=== PATIENT | male | born 1945 | race Hispanic/Latino ===

== ENCOUNTER 2021-08-19 21:33 | Emergency (ER) | payer MEDICARE ==
--- NOTE | 2021-08-19 21:58 | Emergency Department Report ---
Blank Doc - Documentation Documentation: [facility] Consult Note # Demographics Consult Type: Acute Stroke Level 1 (0-4.5 hrs) Patient Location: Emergency Room First Name: Massimo Last Name: Trevin Date of : Age: 89 Gender: Male Facility: [facility] Time of Initial Page (Eastern Time): 08/19/2021, 21:33 Time of Return Call (Eastern Time): 08/19/2021, 21:33 # HPI History: EMS was called to a [employer] as the patient fell and was noted to have right sided weakness. He is unable to provide any inofrmation 2000 had the witnessed onset. # Scores Level of Consciousness 1a: [0] = Alert; keenly responsive LOC Questions 1b: [2] = Answers neither correctly LOC Commands 1c: [0] = Performs both tasks correctly Best Gaze 2: [0] = Normal Visual 3: [0] = No visual loss Facial Palsy 4: [2] = Partial paralysis Motor Arm Left 5a: [0] = No drift Motor Arm Right 5b: [4] = No movement Motor Leg Left 6a: [0] = No drift Motor Leg Right 6b: [4] = No movement Limb Ataxia 7: [0] = Absent Sensory 8: [0] = Normal Best Language 9: [2] = Severe aphasia Dysarthria 10: [1] = [id number] dysarthria Extinction and Inattention 11: [0] = No abnormality NIHSS Total: 15 # Exam SBP: 160 DBP: 84 # Data Head CT: no bleed chrnoic infarcts in bilateral hemispheres, right cerebellum CTA Head: MCA occlusion preliminarily reviewed by me, please refer to radiology read for official reading # Assessment Impression: Ischemic Stroke (Acute) # Plan Thrombolytic/Intervention: Possible IA candidate Thrombolytic Exclusion (< 3 hour window): other (see below) Thrombolytic Exclusion: pt unable to provide info about any contraindication while in CT Possible IA Candidate: signs and symptoms of LVO Imaging: (urgency: STAT): CT Angiogram Head and CT Angiogram Neck AND call back with results if abnormal Thrombolytic Administration Recommendations: Transfer to facility that is IA capable for consideration of mechanical thrombectomy Other: I have discussed my recommendations with the referring provider Disposition: transfer to IA capable facility # Logistics Telemedicine: Interactive 2 way audio and visual telecommunication technology was utilized during this visit
--- NOTE | 2021-08-19 22:00 | Emergency Department Report ---
ED Neuro Deficit HPI - General Chief Complaint: Neuro Symptoms/Deficit Stated Complaint: STROKE Time Seen by Provider: 08/19/21 21:33 Source: patient, EMS (Verbal report received from emergency medical services. EMS documentation not available at time of chart dictation ), RN notes reviewed Mode of arrival: Stretcher Limitations: Altered Mental Status, Physical Limitation - History of Present Illness Initial Comments: The patient is a 76-year-old gentleman. He is not known to myself previously. He is brought to the hospital by EMS as a possible code stroke. The patient's last known well time is not explicitly known. EMS reports to myself that the patient was in an outside supermarket, and he appeared to collapse. It is not known if he fell or hit his head or neck. EMS reports right-sided weakness, and right-sided facial droop. They report normal Accu-Chek. Code stroke called in advance. Initially, patient does not have ID on him, and he is triaged under the name of medical emergency. In the emergency room, the patient is awake, with right-sided facial droop, and dense right-sided hemiparesis. He is aphasic. He is awake and follows commands. He denies physical pain. The patient cannot tell me for certain when his last known well time is. Patient not able to answer questions about contraindications to TPA, such as recent use of anticoagulation, recent stroke, recent ME, recent surgery, or presence of systemic anticoagulation. At the moment, he is not accompanied by friends or family for collateral information or additional information. Patient aphasic, and not able to describe the qualitative nature of symptoms, exacerbating factors relieving factors or aggravating factors. Code stroke called overhead, given concern for MCA syndrome, noncontrast CT scan of the brain is obtained, as well as emergent acquisition of CT angiogram head and neck. Noncontrast CT scan of the brain demonstrates evidence of stroke. CT angiogram head and neck demonstrates left-sided M1 occlusion. Given uncertainty regarding last known well time and inability to obtain definitive information regarding whether or not patient has any exclusionary factors for TPA administration,, TPA is not recommended by myself, or consulting stroke neurologist. Transfer is recommended to a facility that can provide endovascular intervent ion. Contacted [facility] stroke [facility], and discussed the case with their consulting stroke neurologist, Dr. Diehl Discussed patient's history, physical, pertinent laboratory studies and imaging studies, and physical exam findings. She has also reviewed the patient's pertinent CT imaging. Patient is accepted to [facility] for emergent thrombectomy. I went back and discussed this with the patient. Patient nodded in agreement. In addition, was later on provided with the patient's true name, as well as the name of his daughter, Ms. Latha Love; [phone]. I had extensive discussion with the patient's daughter regarding the patient's current situation, and specifically risks, benefits, alternatives of TPA, and specifically the reasons why TPA was not being administered. She articulated understanding, and provided verbal consent for transfer to [facility] as well. -: unknown Location: speech, right face, right arm, left leg, altered Presenting Symptoms: Present: Weak/Paralyzed One Side ED Review of Systems ROS: Stated complaint: STROKE Other details as noted in HPI Comment: Unobtainable due to pts medical conditions Cardiovascular: denies: chest pain Gastrointestinal: denies: abdominal pain Neurological: weakness ED Neuro Physical Exam - General Limitations: Altered Mental Status, Physical Limitation General appearance: in no apparent distress, anxious Suspected Stroke: Yes - Head Head exam: Present: atraumatic, normocephalic - Eye Eye exam: Present: normal appearance, EOMI. Absent: nystagmus - ENT ENT exam: Present: normal exam, normal orophraynx, mucous membranes moist, normal external ear exam - Neck Neck exam: Present: normal inspection, full ROM. Absent: tenderness - Respiratory Respiratory exam: Present: normal lung sounds bilaterally. Absent: respiratory distress, wheezes, rales, rhonchi, stridor, decreased breath sounds - Cardiovascular Cardiovascular Exam: Present: regular rate, normal rhythm, normal heart sounds. Absent: bradycardia, tachycardia, irregular rhythm, systolic murmur, diastolic murmur, rubs, gallop - GI/Abdominal GI/Abdominal exam: Present: soft. Absent: distended, tenderness, guarding, rebound, rigid, pulsatile mass - Rectal Rectal exam: Present: deferred - Extremities Exam Extremities exam: Present: normal inspection, full ROM (Left arm and left leg), other (2+ pulses noted in the bilateral upper and lower extremities. There is no palpable cord. negative Homans sign. Muscular compartments are soft. The pelvis is stable.). Absent: calf tenderness - Back Exam Back exam: Present: normal inspection. Absent: CVA tenderness (R), CVA tenderness (L), paraspinal tenderness, vertebral tenderness - Neurological Exam Neurological exam: Present: altered, motor sensory deficit (There is right-sided facial droop. There is right-sided hemiparesis.) - NIHSS Assessment Interval: Baseline 1a. Level of Consciousness: arousable/minor stimuli 1b. LOC Questions: dysarthric/intubated 1c. LOC Commands: performs 1 task correctly 2. Best Gaze: normal 3. Visual: no visual loss 4. Facial Palsy: partial paralysis 5b. Motor Arm Right: no gravity effort 5a. Motor Arm Left: drift 6a. Motor Leg Left: drift 6b. Motor Leg Right: no gravity effort 7. Limb Ataxia: present 1 limb 8. Sensory: mild/moderate sensory loss 9. Best Language: mild/moderate aphasia 10. Dysarthria: mild/moderate dysarthria 11. Extinction/Inattention: visual/tactile inattention Total Score: 18 Stroke Severity: Moderate to Severe Stroke - Psychiatric Psychiatric exam: Present: anxious - Skin Skin exam: Present: warm, dry, intact, normal color. Absent: rash ED Course Vital Signs 08/19/21 08/19/21 08/19/21 21:52 22:11 22:15 Temperature 98.1 F Pulse Rate 72 Respiratory 16 Rate Blood Pressure 159/89 156/95 O2 Sat by Pulse 100 100 Oximetry 08/19/21 08/19/21 22:31 22:45 Temperature Pulse Rate 70 67 Respiratory 16 16 Rate Blood Pressure 168/95 158/90 O2 Sat by Pulse 100 100 Oximetry - Reevaluation(s) Reevaluation #1: 08/19/21 23:36 Contacted [facility] physician, Dr. Hutchins. Discussed the patient's history, physical, CT scan findings and existing clinical diagnosis. She has articulated understanding. - Lab Data Result diagrams: 08/19/21 22:03 08/19/21 22:03 Lab Results 08/19/21 08/19/21 08/19/21 Range/Units 21:42 22:03 22:03 WBC 9.8 (4.5-11.0) K/mm3 RBC 4.78 (3.65-5.03) M/mm3 Hgb 14.2 (11.8-15.2) gm/dl Hct 44.6 (35.5-45.6) % MCV 93 (84-94) fl MCH 30 (28-32) pg MCHC 32 (32-34) % RDW 13.9 (13.2-15.2) % Plt Count 500 H (140-440) K/mm3 Lymph % (Auto) 14.4 (13.4-35.0) % Wise % (Auto) 7.7 H (0.0-7.3) % Eos % (Auto) 2.1 (0.0-4.3) % Baso % (Auto) 0.7 (0.0-1.8) % Lymph # (Auto) 1.4 (1.2-5.4) K/mm3 Wise # (Auto) 0.8 (0.0-0.8) K/mm3 Eos # (Auto) 0.2 (0.0-0.4) K/mm3 Baso # (Auto) 0.1 (0.0-0.1) K/mm3 Seg Neutrophils % 75.1 H (40.0-70.0) % Seg Neutrophils # 7.3 (1.8-7.7) K/mm3 PT 15.0 H (12.2-14.9) Sec. INR 1.06 (0.87-1.13) APTT 32.6 (24.2-36.6) Sec. Thrombin Time 18.5 (15.1-19.6) Sec. Sodium (137-145) mmol/L Potassium (3.6-5.0) mmol/L Chloride (98-107) mmol/L Carbon Dioxide (22-30) mmol/L Anion Gap mmol/L BUN (9-20) mg/dL Creatinine (0.8-1.3) mg/dL Estimated GFR ml/min BUN/Creatinine Ratio % Glucose (75-100) mg/dL POC Glucose 91 (70-105) mg/dL Calcium (8.4-10.2) mg/dL Total Bilirubin (0.1-1.2) mg/dL AST (5-40) units/L ALT (7-56) units/L Alkaline Phosphatase (35-129) units/L Total Creatine Kinase (55-170) units/L CK-MB (CK-2) (0.0-4.0) ng/mL CK-MB (CK-2) Rel Index (0-4) Troponin T (0.00-0.029) ng/mL Total Protein (6.3-8.2) g/dL Albumin (3.9-5) g/dL Albumin/Globulin Ratio % Triglycerides (2-149) mg/dL Cholesterol (50-199) mg/dL LDL Cholesterol Direct (50-130) mg/dL HDL Cholesterol (40-59) mg/dL Cholesterol/HDL Ratio % Plasma/Serum Alcohol (0-0.07) % 08/19/21 08/19/21 Range/Units 22:03 22:03 WBC (4.5-11.0) K/mm3 RBC (3.65-5.03) M/mm3 Hgb (11.8-15.2) gm/dl Hct (35.5-45.6) % MCV (84-94) fl MCH (28-32) pg MCHC (32-34) % RDW (13.2-15.2) % Plt Count (140-440) K/mm3 Lymph % (Auto) (13.4-35.0) % Wise % (Auto) (0.0-7.3) % Eos % (Auto) (0.0-4.3) % Baso % (Auto) (0.0-1.8) % Lymph # (Auto) (1.2-5.4) K/mm3 Wise # (Auto) (0.0-0.8) K/mm3 Eos # (Auto) (0.0-0.4) K/mm3 Baso # (Auto) (0.0-0.1) K/mm3 Seg Neutrophils % (40.0-70.0) % Seg Neutrophils # (1.8-7.7) K/mm3 PT (12.2-14.9) Sec. INR (0.87-1.13) APTT (24.2-36.6) Sec. Thrombin Time (15.1-19.6) Sec. Sodium 139 (137-145) mmol/L Potassium 3.9 (3.6-5.0) mmol/L Chloride 105.0 (98-107) mmol/L Carbon Dioxide 22 (22-30) mmol/L Anion Gap 16 mmol/L BUN 28 H (9-20) mg/dL Creatinine 0.8 (0.8-1.3) mg/dL Estimated GFR > 60 ml/min BUN/Creatinine Ratio 35 % Glucose 102 H (75-100) mg/dL POC Glucose (70-105) mg/dL Calcium 9.1 (8.4-10.2) mg/dL Total Bilirubin 0.60 (0.1-1.2) mg/dL AST 24 (5-40) units/L ALT 12 (7-56) units/L Alkaline Phosphatase 77 (35-129) units/L Total Creatine Kinase 144 (55-170) units/L CK-MB (CK-2) 9.9 H (0.0-4.0) ng/mL CK-MB (CK-2) Rel Index 6.8 H (0-4) Troponin T 0.068 H (0.00-0.029) ng/mL Total Protein 6.9 (6.3-8.2) g/dL Albumin 4.0 (3.9-5) g/dL Albumin/Globulin Ratio 1.4 % Triglycerides 84 (2-149) mg/dL Cholesterol 151 (50-199) mg/dL LDL Cholesterol Direct 88 (50-130) mg/dL HDL Cholesterol 47 (40-59) mg/dL Cholesterol/HDL Ratio 3.21 % Plasma/Serum Alcohol < 0.01 (0-0.07) % Vital Signs 08/19/21 08/19/21 08/19/21 22:11 22:15 22:31 Pulse Rate 72 70 Respiratory 16 16 Rate Blood Pressure 159/89 156/95 168/95 O2 Sat by Pulse 100 100 100 Oximetry 08/19/21 22:45 Pulse Rate 67 Respiratory 16 Rate Blood Pressure 158/90 O2 Sat by Pulse 100 Oximetry - EKG Data -: EKG Interpreted by In EKG shows normal: sinus rhythm Rate: normal When compared to previous EKG there are: previous EKG unavailable 08/19/21 22:54 The EKG is interpreted at 22: 24 Sinus rhythm, 68 bpm. Normal axis, QTC 442 ms. Poor R progression. Low voltage. Abnormal EKG. Not a STEMI - Radiology Data Radiology results: pending, report reviewed, image reviewed This study is identified by patient name "emergency, medical". Patient's ifeoma ntity and age are unknown at this time. CTA neck without and with intravenous contrast material CLINICAL HISTORY: stroke sx TECHNIQUE: Following acquisition of a timing bolus 0.625 mm thick contiguous axial scans were obtained from aortic arch to the skull base during rapid bolus intravenous contrast infusion. In addition to evaluation of axial source images multiplanar reconstructions were produced and reviewed for this report. 3 plane MIP reconstructions were produced and reviewed. Contrast dose report: Omnipaque 350: 100 ml, administered intravenously All CT examinations performed at this facility utilize modulated dose reduction, iterative reconstruction or weight-based dosing, as appropriate, to obtain a radiation dose which is as low as can reasonably be achieved. FINDINGS: Thoracic aorta:No abnormalities are identified along the course of the thoracic aorta..The origins of the great vessels have an unremarkable appearance. Brachiocephalic artery, left common carotid artery origin and left subclavian artery all have an unremarkable appearance. Right carotid artery:No abnormalities are seen along the course of the RCCA, at the right carotid bifurcation or along the cervical portions of the RUBI. Left carotid artery: No abnormalities are noted along the course of the left common carotid artery, at the left carotid bifurcation or along the course of the cervical segments of the LICA. Posterior circulation:The vertebral arteries have an unremarkable appe arance. Both vertebral arteries contribute to the basilar artery origin. The basilar artery has an unremarkable appearance. The degree of stenosis, if any, is determined utilizing NASCET like criteria. In this case there is no indication of hemodynamically significant stenosis at the carotid bifurcations or elsewhere. Evaluation of the nonvascular soft tissue structures reveal no abnormality. There is no indication of cervical lymphadenopathy. No abnormalities are seen along the course of the airway. Visualized portions of the parotid glands and the submandibular salivary glands have a normal appearance. Thyroid gland has a normal appearance. Evaluation of the lung apices reveals no evidence of lung nodule or infiltrate. Evaluation of the cervical spine remarkable for widespread cervical spondylosis with multifocal neuroforaminal stenosis. In addition there is some to severe central canal stenosis at the C4-5 level secondary to posterior disc osteophyte complex. IMPRESSION: 1. No indication of hemodynamically significant stenosis at the carotid bifurcations or elsewhere. CTA head with intravenous contrast CLINICAL HISTORY: stroke sx TECHNIQUE: 0.625 mm thick contiguous axial scans were obtained from the skull base to the skull vertex during rapid bolus administration of intravenous contrast material. Multiplanar reconstructions were produced in the coronal and sagittal planes. In addition 3 plane MIP instructions were produced and reviewed for this report. The axial source images and reconstructed images were reviewed for this report. CONTRAST DOSE REPORT: Omnipaque 350: 100 ml administered intravenously. All CT scans at this location are performed using CT dose reduction for UTILICASE by means of automated exposure control. FINDINGS: Internal carotid arteries:Johnson, cavernous, opthalmic, clinoid and supraclinoid segments of the ICAs have an unremarkable a ppearance. Middle cerebral arteries: There is complete occlusion of the mid M1 segment of the left middle cerebral artery consistent with thromboembolic occlusion. The size and number of M2 and M3 branches on the left is decreased compared to those on the right. Anterior cerebral arteries:Bilaterally symmetrical A1 segments are demonstrated. No abnormalities are seen along the course of the A2 segments or their visualized pericallosal branches. I do not identified an anterior communicating artery. Vertebral arteries:Bilaterally symmetrical vertebral arteries are demonstrated. Both vertebral arteries contribute to the basilar artery origin. Basilar artery:Basilar artery has an unremarkable appearance. Posterior cerebral arteries:Bilaterally symmetrical posterior cerebral arteries are identified. Posterior communicating arteries are not identified. [place]:Not intact. see above. Dural sinuses: Dural venous sinuses are well demonstrated on this exam. There is no evidence of dural sinus thrombosis. IMPRESSION: 1. Abnormal study with large vessel occlusion of the mid M1 segment of the left middle cerebral artery. CRITICAL RESULT: Time of Discovery (BATTERYMAN/CDT): 2124 Time of Communication (BATTERYMAN/CDT): 2129 Licensed Practitioner Receiving Report: Dr. Dayo De La Rosa, [facility] emergency department. Read-Back Performed: Not applicable. Signer Name: Jose Sheppard MD Signed: 08/19/2021 9:30 PM Workstation Name: [id number] This study is identified by patient name "emergency, medical". Patient's identity and age are unknown at this time. CT HEAD WITHOUT CONTRAST INDICATION / CLINICAL INFORMATION: Stroke symptoms. TECHNIQUE: All CT scans at this location are performed using CT dose reduction for ALARA by means of automated exposure control. COMPARISON: None available. FINDINGS: HEMORRHAGE: No evidence of intracranial hemorrhage or extra-axial fluid collection. EXTRA-AXIAL SPACES: Cortical sulci and sylvian fissures are enlarged reflecting a degree of parenchymal volume loss Basilar cisterns have an unremarkable appearance. VENT RICULAR SYSTEM: The third and lateral ventricles are mildly enlarged reflecting presence of parenchymal volume loss. CEREBRAL PARENCHYMA: Periventricular and deep white matter lucency is observed. This is probably secondary to microvascular ischemic change. There is no indication of recent infarction. There is evidence of remote deep infarction involving anterior gangliocapsular structures and head of caudate nucleus on the left. MIDLINE SHIFT OR HERNIATION: There is no mass effect. CEREBELLUM / BRAINSTEM: Brainstem has an unremarkable appearance. Is evidence of remote cerebellar infarction involving the posterior inferior aspect of the right cerebellar hemisphere. MIDLINE STRUCTURES:Pituitary gland has an unremarkable appearance. No abnormalities are seen in the pineal region. INTRACRANIAL VESSELS:Calcified atherosclerotic plaque is present along the course of the cavernous segments of both internal carotid arteries. ORBITS: visualized portions of the orbits have an unremarkable appearance. SOFT TISSUES of HEAD: No significant abnormality. CALVARIUM: Evaluation of bone windows revea ls no abnormalities. PARANASAL SINUSES / MASTOID AIR CELLS: Paranasal sinuses are free from inflammatory mucosal disease. Mastoid air cells are normally pneumatized. IMPRESSION: 1. No acute intracranial abnormality. 2. 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 Signer Name: Jose Sheppard MD Signed: 08/19/2021 9:24 PM Workstation Name: [id number] CT CERVICAL SPINE WITHOUT CONTRAST INDICATION / CLINICAL INFORMATION: FALL RIGHT SIDED WEAKNESS. TECHNIQUE: Axial CT images were obtained through the cervical spine. Sagittal and coronal reformatted images were produced. All CT scans at this location are performed using CT dose reduction for ALARA by means of automated exposure control. COMPARISON: None available. FINDINGS: ALIGNMENT: No indication of traumatic subluxation. VERTEBRAE: No indication of fracture. No evidence of bone destruction. DISC SPACES: Loss of disc height is noted at the C3-4, C4-5, C5-6 and C6-7 levels. Prominent disc vacuum phenomena is present at each of these levels. INDIVIDUAL LEVEL ANALYSIS: C2-3: Bilateral facet arthropathy is noted. Central spinal canal and neuroforamina are adequate C3-4: Loss of disc height and disc vacuum phenomena are noted. Facet and uncovertebral arthritic changes contribute to moderate bilateral foraminal stenosis at the foramina. C4-5: Left worse than right facet arthropathy and uncovertebral degenerative changes contribute to moderate left-sided and mild right-sided neuroforaminal stenosis at the C5 nerve root level. Posterior disc osteophyte complex contributes to moderate central canal stenosis. AP diameter of the spinal canal spine 7 mm. C5-6: Loss of disc height and disc vacuum phenomena are noted. Facet and vertebral arthritic change contribute to bila teral foraminal stenosis. Central spinal canal is adequately maintained. C6-7: Loss of disc height and disc vacuum phenomena are noted. Facet and uncovertebral arthritic change contribute to moderate foraminal stenosis. Central spinal canal is adequate in size. C7-T1:No abnormality. CRANIOCERVICAL JUNCTION:No significant abnormality. SPINAL CANAL: Central canal stenosis at C4-5 as described above. PARASPINAL SOFT TISSUES: No significant abnormality. LUNG APICES: No significant abnormality of visualized lungs. IMPRESSION: 1. No indication of fracture or traumatic subluxation. 2. Widespread cervical spondylosis with multifocal neuroforaminal narrowing. 3. Moderate central canal stenosis C4-5. Signer Name: Jose Sheppard MD Signed: 08/19/2021 9:43 PM Workstation Name: [id number] - Medical Decision Making Differential diagnosis, including but not limited to: Stroke, large vessel occlusion, type II troponin leak Assessment and plan: 76-year-old gentleman, who is afebrile, with reassuring vital signs, presenting with right sided hemiparesis, and MCA syndrome clinically. Patient is not a TPA candidate as we are not able to reliably exclude contraindi cations to TPA, such as exact last known well time, concomitant anticoagulant medications, recent surgery, ME, stroke, and bleeding as well as trauma. I discussed this extensively with the patient's daughter. She articulated understanding. This is also the recommendation of Dr. Blackburn, stroke ne urology, and I am agreement with this. Patient is within 24 hours of his last known well time, and therefore he is a candidate for evaluation for mechanical thrombectomy. Patient has been extensively discussed with [facility] stroke neurology team, and Dr. Bond will be the accepting physician. I am currently awaiting arrival transportation and transport at this time This patient has an emergent neurologic and medical condition which cannot be definitively managed at this hospital, as this hospital is not able to provide mechanical thrombectomy/endovascular neurology intervention. He is hem odynamically stable, protecting airway, and suitable for transfer at this time for definitive management. Elevated troponin is probable type II troponin leak. - Core Measures Measure Exclusions: not indicated - Thrombolytic Inclusion/Exclusion Thrombolytic Exclusion Criteria: Onset of Symptoms Unknown Critical Care Time: Yes Critical care time in (mins) excluding proc time.: 60 Critical care attestation.: If time is entered above; I have spent that time in minutes in the direct care of this critically ill patient, excluding procedure time. ED Disposition Clinical Impression: Acute stroke due to ischemia Occlusion of middle cerebral artery Qualifiers: Laterality: left Qualified Code(s): I66.02 - Occlusion and stenosis of left middle cerebral artery Disposition: 02 SHORT TERM HOSPITAL Is pt being admited?: No Does the pt Need Aspirin: No Condition: Critical Referrals: PRIMARY CARE, [Primary Care Provider] - 3-5 Days
[2021-08-19 22:12] LABS: Basophils # (Auto) 0.1 K/mm3 (0.0-0.1); Basophils % (Auto) 0.7 % (0.0-1.8); Eosinophils # (Auto) 0.2 K/mm3 (0.0-0.4); Eosinophils % (Auto) 2.1 % (0.0-4.3); Hematocrit 44.6 % (35.5-45.6); Hemoglobin 14.2 gm/dl (11.8-15.2); Lymphocytes # (Auto) 1.4 K/mm3 (1.2-5.4); Lymphocytes % (Auto) 14.4 % (13.4-35.0); Mean Corpuscular HGB Conc 32 % (32-34); Mean Corpuscular Volume 93 fl (84-94); Monocytes # (Auto) 0.8 K/mm3 (0.0-0.8); Monocytes % (Auto) 7.7 % (0.0-7.3); Platelet Count 500 K/mm3 (140-440); Red Blood Count 4.78 M/mm3 (3.65-5.03); Red Cell Distribution Width 13.9 % (13.2-15.2)
[2021-08-19 22:24] LABS: INR 1.06 (0.87-1.13)
[2021-08-19 22:25] LABS: Partial Thromboplastin Time 32.6 Sec. (24.2-36.6); Thrombin Time 18.5 Sec. (15.1-19.6)
[2021-08-19 22:28] LABS: Creatine Kinase MB 9.9 ng/mL (0.0-4.0)
--- NOTE | 2021-08-19 22:28 | Cat Scan Report ---
This study is identified by patient name "emergency, medical". Patient's identity and age are unknown at this time. CT HEAD WITHOUT CONTRAST INDICATION / CLINICAL INFORMATION: Stroke symptoms. TECHNIQUE: All CT scans at this location are performed using CT dose reduction for ALARA by means of automated e xposure control. COMPARISON: None available. FINDINGS: HEMORRHAGE: No evidence of intracranial hemorrhage or extra-axial fluid collection. EXTRA-AXIAL SPACES: Cortical sulci and sylvian fissures are enlarged reflecting a degree of parenchym al volume loss Basilar cisterns have an unremarkable appearance. VENTRICULAR SYSTEM: The third and lateral ventricles are mildly enlarged reflecting presence of paren chymal volume loss. CEREBRAL PARENCHYMA: Periventricular and deep white matter lucency is observed. This is probably seco ndary to microvascular ischemic change. There is no indication of recent infarction. There is evidenc e of remote deep infarction involving anterior gangliocapsular structures and head of caudate nucleus on the left. MIDLINE SHIFT OR HERNIATION: There is no mass effect. CEREBELLUM / BRAINSTEM: Brainstem has an unremarkable appearance. Is evidence of remote cerebellar in farction involving the posterior inferior aspect of the right cerebellar hemisphere. MIDLINE STRUCTURES:Pituitary gland has an unremarkable appearance. No abnormalities are seen in the p ineal region. INTRACRANIAL VESSELS:Calcified atherosclerotic plaque is present along the course of the cavernous se gments of both internal carotid arteries. ORBITS: visualized portions of the orbits have an unremarkable appearance. SOFT TISSUES of HEAD: No significant abnormality. CALVARIUM: Evaluation of bone windows reveals no abnormalities. PARANASAL SINUSES / MASTOID AIR CELLS: Paranasal sinuses are free from inflammatory mucosal disease. Mastoid air cells are normally pneumatized. IMPRESSION: 1. No acute intracranial abnormality. 2. 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 Signer Name: Jose Sheppard MD Signed: 08/19/2021 10:24 PM Workstation Name: [id number]
[2021-08-19 22:29] LABS: Alanine Aminotransferase 12 units/L (7-56); BUN/Creatinine Ratio 35; Blood Urea Nitrogen 28 mg/dL (9-20); Calcium 9.1 mg/dL (8.4-10.2); Hemolysis Index 11
--- NOTE | 2021-08-19 22:35 | Cat Scan Report ---
This study is identified by patient name "emergency, medical". Patient's identity and age are unknown at this time. CTA neck without and with intravenous contrast material CLINICAL HISTORY: stroke sx TECHNIQUE: Following acquisition of a timing bolus 0.625 mm thick contiguous axial scans were obtained from aort ic arch to the skull base during rapid bolus intravenous contrast infusion. In addition to evaluation of axial source images multiplanar reconstructions were produced and reviewed for this report. 3 sherman ne MIP reconstructions were produced and reviewed. Contrast dose report: Omnipaque 350: 100 ml, administered intravenously All CT examinations performed at this facility utilize modulated dose reduction, iterative reconstruc tion or weight-based dosing, as appropriate, to obtain a radiation dose which is as low as can reason ably be achieved. FINDINGS: Thoracic aorta:No abnormalities are identified along the course of the thoracic aorta..The origins of the great vessels have an unremarkable appearance. Brachiocephalic artery, left common carotid arter y origin and left subclavian artery all have an unremarkable appearance. Right carotid artery:No abnormalities are seen along the course of the RCCA, at the right carotid bif urcation or along the cervical portions of the RUBI. Left carotid artery: No abnormalities are noted along the course of the left common carotid artery, a t the left carotid bifurcation or along the course of the cervical segments of the LICA. Posterior circulation:The vertebral arteries have an unremarkable appearance. Both vertebral arteries contribute to the basilar artery origin. The basilar artery has an unremarkable appearance. The degree of stenosis, if any, is determined utilizing NASCET like criteria. In this case there is no indication of hemodynamically significant stenosis at the carotid bifurcations or elsewhere. Evaluation of the nonvascular soft tissue structures reveal no abnormality. There is no indication of cervical lymphadenopathy. No abnormalities are seen along the course of the airway. Visualized porti ons of the parotid glands and the submandibular salivary glands have a normal appearance. Thyroid gla nd has a normal appearance. Evaluation of the lung apices reveals no evidence of lung nodule or infil trate. Evaluation of the cervical spine remarkable for widespread cervical spondylosis with multifocal neuro foraminal stenosis. In addition there is some to severe central canal stenosis at the C4-5 level seco ndary to posterior disc osteophyte complex. IMPRESSION: 1. No indication of hemodynamically significant stenosis at the carotid bifurcations or elsewhere. CTA head with intravenous contrast CLINICAL HISTORY: stroke sx TECHNIQUE: 0.625 mm thick contiguous axial scans were obtained from the skull base to the skull vertex during r apid bolus administration of intravenous contrast material. Multiplanar reconstructions were produced in the coronal and sagittal planes. In addition 3 plane MIP instructions were produced and reviewed for this report. The axial source images and reconstructed images were reviewed for this report. CONTRAST DOSE REPORT: Omnipaque 350: 100 ml administered intravenously. All CT scans at this location are performed using CT dose reduction for ALARA by means of automated e xposure control. FINDINGS: Internal carotid arteries:Johnson, cavernous, opthalmic, clinoid and supraclinoid segments of the ICAs have an unremarkable appearance. Middle cerebral arteries: There is complete occlusion of the mid M1 segment of the left middle cerebr al artery consistent with thromboembolic occlusion. The size and number of M2 and M3 branches on the left is decreased compared to those on the right. Anterior cerebral arteries:Bilaterally symmetrical A1 segments are demonstrated. No abnormalities are seen along the course of the A2 segments or their visualized pericallosal branches. I do not identif ied an anterior communicating artery. Vertebral arteries:Bilaterally symmetrical vertebral arteries are demonstrated. Both vertebral arteri es contribute to the basilar artery origin. Basilar artery:Basilar artery has an unremarkable appearance. Posterior cerebral arteries:Bilaterally symmetrical posterior cerebral arteries are identified. Post erior communicating arteries are not identified. [place]:Not intact. see above. Dural sinuses: Dural venous sinuses are well demonstrated on this exam. There is no evidence of dural sinus thrombosis. IMPRESSION: 1. Abnormal study with large vessel occlusion of the mid M1 segment of the left middle cerebral arter y. CRITICAL RESULT: Time of Discovery (COOLING SYSTEM OPERATOR/CDT): 2124 Time of Communication (COOLING SYSTEM OPERATOR/CDT): 2129 Licensed Practitioner Receiving Report: Dr. Dayo De La Rosa, [facility] emerge ncy department. Read-Back Performed: Not applicable. Signer Name: Jose Sheppard MD Signed: 08/19/2021 10:30 PM Workstation Name: [id number]
--- NOTE | 2021-08-19 22:47 | Cat Scan Report ---
CT CERVICAL SPINE WITHOUT CONTRAST INDICATION / CLINICAL INFORMATION: FALL RIGHT SIDED WEAKNESS. TECHNIQUE: Axial CT images were obtained through the cervical spine. Sagittal and coronal reformatted images wer e produced. All CT scans at this location are performed using CT dose reduction for ALARA by means of automated exposure control. COMPARISON: None available. FINDINGS: ALIGNMENT: No indication of traumatic subluxation. VERTEBRAE: No indication of fracture. No evidence of bone destruction. DISC SPACES: Loss of disc height is noted at the C3-4, C4-5, C5-6 and C6-7 levels. Prominent disc vac uum phenomena is present at each of these levels. INDIVIDUAL LEVEL ANALYSIS: C2-3: Bilateral facet arthropathy is noted. Central spinal canal and neuroforamina are adequate C3-4: Loss of disc height and disc vacuum phenomena are noted. Facet and uncovertebral arthritic torrez ges contribute to moderate bilateral foraminal stenosis at the foramina. C4-5: Left worse than right facet arthropathy and uncovertebral degenerative changes contribute to mo derate left-sided and mild right-sided neuroforaminal stenosis at the C5 nerve root level. Posterior disc osteophyte complex contributes to moderate central canal stenosis. AP diameter of the spinal can al spine 7 mm. C5-6: Loss of disc height and disc vacuum phenomena are noted. Facet and vertebral arthritic change c ontribute to bilateral foraminal stenosis. Central spinal canal is adequately maintained. C6-7: Loss of disc height and disc vacuum phenomena are noted. Facet and uncovertebral arthritic torrez ge contribute to moderate foraminal stenosis. Central spinal canal is adequate in size. C7-T1:No abnormality. CRANIOCERVICAL JUNCTION:No significant abnormality. SPINAL CANAL: Central canal stenosis at C4-5 as described above. PARASPINAL SOFT TISSUES: No significant abnormality. LUNG APICES: No significant abnormality of visualized lungs. IMPRESSION: 1. No indication of fracture or traumatic subluxation. 2. Widespread cervical spondylosis with multifocal neuroforaminal narrowing. 3. Moderate central canal stenosis C4-5. Signer Name: Jose Sheppard MD Signed: 08/19/2021 10:43 PM Workstation Name: [id number]
[2021-08-19 23:01] VITALS: BP 158/90
--- NOTE | 2021-08-19 23:18 | XRay Report ---
CHEST 1 VIEW 08/19/2021 10:08 PM INDICATION / CLINICAL INFORMATION: CVA. COMPARISON: None available. FINDINGS: SUPPORT DEVICES: None. HEART / MEDIASTINUM: The heart size is borderline with a left ventricular configuration. Pulmonary va sculature is normal for technique. There is mild aortic tortuosity without aneurysm. LUNGS / PLEURA: Low lung volumes without other significant pulmonary or pleural abnormality. No pneum othorax. ADDITIONAL FINDINGS: No significant additional findings. IMPRESSION: Low lung volumes without other significant abnormality. Signer Name: Silas Botello MD Signed: 08/19/2021 11:14 PM Workstation Name: [id number]
[2021-08-19 23:46] LABS: Chol/HDL Ratio 3.21 %; HDL Cholesterol 47 mg/dL (40-59); LDL Cholesterol,Direct 88 mg/dL (50-130)
== END 2021-08-19 23:50 | disposition short-term general hospital (02) ==
LOC: EDBD → ED 21:33
DX: I63.9 Cerebral infarction, unspecified (principal); I66.09 Occlusion and stenosis of unspecified middle cerebral artery; Z91.09 Other allergy status, other than to drugs and biological substances
CPT/HCPCS: 36415; 70450; 70496; 70498; 71045; 72125; 80053; 80061; 82550; 82553; 82962; 84484; 85025; 85610; 85670; 85730; 93005; 99291; Q9967; 80320; G0480